=== PATIENT | female | born 1975 | race Two or more races ===

== ENCOUNTER 2017-12-25 12:31 | Observation (INO) | payer MEDICARE, MEDICAID ==
[~2017-12-25] VITALS: Ht 160 cm; Wt 66.8 kg
[~2017-12-25 12:31] MED LIST: CARV6.25 PO; FENT25DI2 TD; FURO40TA4 PO; HYDR-3682 PO; LIS20T OR; PANT40TA2 PO; PROM25TA5 PO; ROPI0.5T PO; SERT-138 PO; SEVE800T8 PO; SIMV-8 PO; SIMV10TA73 PO; TRAM50TA2 PO
[2017-12-25 16:03] LABS: Basophils # (auto) 0.1 uL; Basophils % (auto) 1.1 % (0.0-2.0); Eosinophils # (auto) 0.2 uL; Eosinophils % (auto) 3.6 % (0.0-7.0); Hematocrit 43.1 % (36.0-46.0); Hemoglobin 14.3 g/dL (12.2-16.2); Lymphocytes # (auto) 0.7 uL; Lymphocytes % (auto) 15.8 % (10.0-50.0); Mean Corpuscular Hemoglobin 31.5 pg (28.0-32.0); Mean Corpuscular Hgb Conc. 33.2 g/dL (32.0-36.0); Mean Corpuscular Volume 95.1 fL (80.0-100.0); Monocytes # (auto) 0.4 uL; Neutrophils # (auto) 3.3 uL; Neutrophils % (auto) 71.5 % (37.0-80.0); Platelet Count (auto) 173 10^3/uL (140-450); Red Blood Cells 4.53 10^6/uL (4.0-5.20); Red Cell Distribution Width 16.3 % (11.8-14.3); White Blood Cell 4.6 10^3/uL (4.4-10.8)
[2017-12-25 16:27] LABS: Alanine Aminotransferase 19 U/L (13-56); Albumin 3.5 g/dL (3.4-5.0); Alkaline Phosphatase 81 U/L (45-117); Anion Gap 9 (5-15); Aspartate Aminotransferase 16 U/L (15-37); Blood Urea Nitrogen 20 mg/dL (7-18); Calcium 7.2 mg/dL (8.5-10.1); Carbon Dioxide 30 mmol/L (21-32); Chloride 92 mmol/L (98-107); GFR African American 9 mL/min; GFR Non-African American 7 mL/min; Glucose 120 mg/dL (74-106); Magnesium 2.6 mg/dL (1.6-2.6); Potassium 4.4 mmol/L (3.5-5.1); Sodium 131 mmol/L (136-145); Total Protein 6.8 g/dL (6.4-8.2)
[2017-12-25 16:29] LABS: INR 1.19 (0.9-1.15)
[2017-12-25] MEDS ORDERED: HYDROcodone-ACET 10/325MG TAB PO ONE (16:30)
[2017-12-25 18:30] VITALS: BP 137/97
== END 2017-12-25 19:08 | disposition home or self-care (01) | DRG 948 ==
LOC: ER 12:37 → OVERFLOW 15:23 → ER 19:07
PROVIDERS: ADMIT Family Medicine; ATTEND Family Medicine
DX: R53.1 Weakness (principal); Q61.3 Polycystic kidney, unspecified; E16.2 Hypoglycemia, unspecified; Z99.2 Dependence on renal dialysis; Z90.49 Acquired absence of other specified parts of digestive tract; Z90.710 Acquired absence of both cervix and uterus; Z90.5 Acquired absence of kidney
CPT/HCPCS: 36415; 71045; 80053; 83735; 84484; 85025; 85610; 85730; 93005; 99285; G0378

== ENCOUNTER 2018-01-24 12:16 | Inpatient (IN) | payer MEDICARE, MEDICAID ==
[~2018-01-24] VITALS: Ht 160 cm; Wt 67.8 kg
[2018-01-24 13:30] LABS: Basophils # (auto) 0 uL; Basophils % (auto) 0.4 % (0.0-2.0); Eosinophils # (auto) 0.3 uL; Eosinophils % (auto) 5.3 % (0.0-7.0); Hematocrit 40.6 % (36.0-46.0); Hemoglobin 13.2 g/dL (12.2-16.2); Lymphocytes # (auto) 0.5 uL; Mean Corpuscular Hemoglobin 30.2 pg (28.0-32.0); Mean Corpuscular Hgb Conc. 32.6 g/dL (32.0-36.0); Mean Corpuscular Volume 92.8 fL (80.0-100.0); Monocytes # (auto) 0.5 uL; Monocytes % (auto) 8.4 % (0.0-12.0); Neutrophils # (auto) 4.6 uL; Neutrophils % (auto) 76.9 % (37.0-80.0); Platelet Count (auto) 149 10^3/uL (140-450); Red Blood Cells 4.38 10^6/uL (4.0-5.20); Red Cell Distribution Width 17.3 % (11.8-14.3)
[2018-01-24 13:56] LABS: Alanine Aminotransferase 16 U/L (13-56); Albumin 3.3 g/dL (3.4-5.0); Anion Gap 11 (5-15); Aspartate Aminotransferase 19 U/L (15-37); BUN/Creatinine Ratio 3.4; Blood Urea Nitrogen 14 mg/dL (7-18); Calcium 7.9 mg/dL (8.5-10.1); Carbon Dioxide 29 mmol/L (21-32); Chloride 91 mmol/L (98-107); GFR African American 15 mL/min; GFR Non-African American 12 mL/min; Glucose 96 mg/dL (74-106); Magnesium 2.3 mg/dL (1.6-2.6); Sodium 131 mmol/L (136-145)
[2018-01-24 14:00] LABS: Alkaline Phosphatase 71 U/L (45-117); Total Protein 6.5 g/dL (6.4-8.2)
[2018-01-24] MEDS ORDERED: DOCUSATE SOD 100 MG CAP PO PRN (19:00)
[2018-01-24] MEDS ORDERED: hydrOXYzine 25 MG TAB or CAP PO PRN (19:00)
[2018-01-24] MEDS ORDERED: ONDANSETRON HCL 4 MG/2 ML VIAL IV PRN (19:00)
[2018-01-24] MEDS ORDERED: MORPHINE SULFATE 4 MG/ML SYR/VIAL IV PRN (19:00)
[2018-01-24] MEDS ORDERED: HYDROcodone-ACET 10/325MG TAB PO PRN (19:00)
[2018-01-24] MEDS ORDERED: TEMAZEPAM 15 MG CAP PO PRN (19:00)
[2018-01-24] MEDS ORDERED: NITROGLYCERIN 0.4 MG SL TAB SL PRN (19:00)
[2018-01-24] MEDS ORDERED: DEXTROSE (50%) 50ML SYRG IV PRN (19:00)
[2018-01-24] MEDS ORDERED: ACETAMINOPHEN 325 MG TAB PO PRN (19:00)
[2018-01-24] MEDS ORDERED: cefTRIAXone 1GM/10ml IVPUSH 10 ML IV ONE (19:00)
[2018-01-24] MEDS ORDERED: cloNIDine HCL 0.1 MG TAB PO PRN (20:15)
[2018-01-24 21:04] VITALS: BP 142/86
[2018-01-24] MEDS: MORPHINE SULFATE 4 MG/ML SYR/VIAL IV PRN (21:28)
[2018-01-24 21:59] VITALS: BP 142/86
[2018-01-24] MEDS: ACCU-CHEK COMFORT CURVE STRIP VI SCH (22:00)
[2018-01-24] MEDS ORDERED: LISINOPRIL 20 MG TAB PO SCH (22:00)
[2018-01-24] MEDS ORDERED: ATORVASTATIN 20 MG TAB PO SCH (22:00)
[2018-01-24] MEDS ORDERED: SERTRALINE HCL 50 MG TAB PO SCH (22:00)
[2018-01-24] MEDS: InsuLIN REG 1unit/0.01ml Soln (100units/ml) SC SCH (22:00)
[2018-01-24] MEDS: CARVEDILOL 3.125 MG TAB PO SCH (22:38)
[2018-01-24] MEDS: FAMOTIDINE 20 MG TAB PO SCH (22:39)
[2018-01-24] MEDS: SODIUM CHLOR 0.9% PF (SALINE LOCK) 10ML VIAL/SYR IV SCH (22:40)
[2018-01-25] MEDS: MORPHINE SULFATE 4 MG/ML SYR/VIAL IV PRN ×4 (01:45→17:34)
[2018-01-25 05:57] VITALS: BP_SYST 144
[2018-01-25 05:58] VITALS: BP 144/87
[2018-01-25] MEDS: InsuLIN REG 1unit/0.01ml Soln (100units/ml) SC SCH ×3 (06:23→17:00)
[2018-01-25] MEDS: SODIUM CHLOR 0.9% PF (SALINE LOCK) 10ML VIAL/SYR IV SCH ×2 (06:23→13:48)
[2018-01-25] MEDS: ACCU-CHEK COMFORT CURVE STRIP VI SCH ×3 (06:23→17:34)
[2018-01-25 06:57] LABS: Basophils # (auto) 0 uL; Basophils % (auto) 0.4 % (0.0-2.0); Eosinophils # (auto) 0.3 uL; Eosinophils % (auto) 6.1 % (0.0-7.0); Hematocrit 38.2 % (36.0-46.0); Hemoglobin 12.6 g/dL (12.2-16.2); Lymphocytes # (auto) 0.7 uL; Lymphocytes % (auto) 12.5 % (10.0-50.0); Mean Corpuscular Hemoglobin 30.5 pg (28.0-32.0); Mean Corpuscular Hgb Conc. 32.9 g/dL (32.0-36.0); Mean Corpuscular Volume 92.6 fL (80.0-100.0); Monocytes # (auto) 0.4 uL; Neutrophils # (auto) 3.9 uL; Nucleated Red Blood Cells % 0.1 %; Platelet Count (auto) 136 10^3/uL (140-450); Red Blood Cells 4.13 10^6/uL (4.0-5.20); White Blood Cell 5.2 10^3/uL (4.4-10.8)
[2018-01-25 07:21] LABS: Albumin 3.1 g/dL (3.4-5.0); BUN/Creatinine Ratio 3.8; Bilirubin, Total 0.8 mg/dL (0.2-1.0); Calcium 7.7 mg/dL (8.5-10.1); Potassium 4.5 mmol/L (3.5-5.1); Total Protein 5.9 g/dL (6.4-8.2)
[2018-01-25] MEDS ORDERED: cefTRIAXone 1GM/10ml IVPUSH 10 ML IV SCH (09:00)
[2018-01-25 09:11] VITALS: BP 134/87
[2018-01-25] MEDS: BOOST PLUS 8 ounce PO SCH ×3 (09:19→17:34)
[2018-01-25] MEDS: CARVEDILOL 3.125 MG TAB PO SCH (09:19)
[2018-01-25] MEDS: FAMOTIDINE 20 MG TAB PO SCH (09:20)
[2018-01-25] MEDS ORDERED: MULTIPLE VITAMIN TAB PO SCH (10:00)
[2018-01-25] MEDS ORDERED: MORPHINE SULFATE INJECTION 1 ML ONE (11:23)
[2018-01-25] MEDS ORDERED: PROMETHAZINE HCL 25 MG/ML 1ML ONE (11:23)
[2018-01-25] MEDS ORDERED: PROMETHAZINE HCL 25 MG/ML 1ML IV PRN (11:30)
[2018-01-25 13:36] VITALS: BP 136/84
[2018-01-25] MEDS ORDERED: SODIUM CHL 0.9% 1000 ML BAG XX ONE (15:00)
[2018-01-25] MEDS ORDERED: diphenhdrAMINE HCL 50 MG/1 ML VL IV ONE (15:15)
[2018-01-25] MEDS ORDERED: diphenhdrAMINE HCL 50 MG/1 ML VL ONE (15:16)
[2018-01-25 15:38] VITALS: BP 134/87
[2018-01-25 19:14] VITALS: BP 150/88
== END 2018-01-25 19:43 | disposition home or self-care (01) | DRG 682 ==
LOC: ER 12:16 → EDBD 12:16 → TELE 12:17 → TELE-EAST 21:03
PROVIDERS: ADMIT Internal Medicine; ATTEND Internal Medicine
PROC: 5A1D70Z Performance of Urinary Filtration, Intermittent, Less than 6 Hours Per Day (ICD-10-PCS; principal; 2018-01-24)
DX: I13.11 Hypertensive heart and chronic kidney disease without heart failure, with stage 5 chronic kidney disease, or end stage renal disease (principal); N18.6 End stage renal disease; E44.0 Moderate protein-calorie malnutrition; E83.51 Hypocalcemia; Q61.3 Polycystic kidney, unspecified; E87.1 Hypo-osmolality and hyponatremia; E16.2 Hypoglycemia, unspecified; E78.5 Hyperlipidemia, unspecified; Z99.2 Dependence on renal dialysis; Z90.49 Acquired absence of other specified parts of digestive tract; Z90.5 Acquired absence of kidney; Z90.710 Acquired absence of both cervix and uterus; Z88.2 Allergy status to sulfonamides; Z79.899 Other long term (current) drug therapy; Z68.26 Body mass index [BMI] 26.0-26.9, adult
CPT/HCPCS: 36415; 80053; 82962; 83605; 83735; 84484; 85025; 87040; 90935; 93005; 94761; 96374; J2270

== ENCOUNTER 2018-03-01 13:12 | Observation (INO) | payer MEDICARE, MEDICAID ==
[~2018-03-01] VITALS: Ht 160 cm; Wt 61.7 kg
[~2018-03-01 13:12] MED LIST changes: -PROM25TA5 PO; -ROPI0.5T PO; -SIMV10TA73 PO; -TRAM50TA2 PO
[2018-03-01 14:07] LABS: Basophils # (auto) 0 uL; Basophils % (auto) 0.9 % (0.0-2.0); Eosinophils # (auto) 0.1 uL; Eosinophils % (auto) 1.1 % (0.0-7.0); Hematocrit 36.8 % (36.0-46.0); Hemoglobin 11.9 g/dL (12.2-16.2); Lymphocytes # (auto) 0.3 uL; Mean Corpuscular Hemoglobin 29.9 pg (28.0-32.0); Mean Corpuscular Hgb Conc. 32.3 g/dL (32.0-36.0); Mean Corpuscular Volume 92.7 fL (80.0-100.0); Monocytes # (auto) 0.4 uL; Monocytes % (auto) 8.6 % (0.0-12.0); Neutrophils # (auto) 4.4 uL; Neutrophils % (auto) 83.4 % (37.0-80.0); Platelet Count (auto) 180 10^3/uL (140-450); Red Blood Cells 3.97 10^6/uL (4.0-5.20); Red Cell Distribution Width 17.5 % (11.8-14.3); White Blood Cell 5.3 10^3/uL (4.4-10.8)
[2018-03-01 14:27] LABS: Albumin 3.4 g/dL (3.4-5.0); BUN/Creatinine Ratio 1.4; Bilirubin, Total 0.9 mg/dL (0.2-1.0); Calcium 8.6 mg/dL (8.5-10.1); Potassium 3.3 mmol/L (3.5-5.1); Total Protein 6.5 g/dL (6.4-8.2)
[2018-03-01] MEDS ORDERED: SODIUM CHLORIDE 0.9% 1,000 ML IV ONE (17:44)
[2018-03-01] MEDS ORDERED: KETOROLAC TROMETH 30 MG/ML 1ML VIAL IV ONE (17:45)
[2018-03-01] MEDS ORDERED: ONDANSETRON HCL 4 MG/2 ML VIAL IV ONE (17:45)
[2018-03-01] MEDS ORDERED: POTASSIUM CHL 10% (20 MEQ/15ML) 15ml ORAL SOLN PO ONE (20:00)
[2018-03-01] MEDS ORDERED: POTASSIUM CHL 20 Meq TABLET PO ONE (20:32)
[2018-03-01 20:40] VITALS: BP 128/80
== END 2018-03-01 20:17 | disposition home or self-care (01) | DRG 391 ==
LOC: ER 13:12 → OVERFLOW 13:13 → ER 20:17
PROVIDERS: ADMIT Family Medicine; ATTEND Family Medicine
DX: R11.2 Nausea with vomiting, unspecified (principal); N18.6 End stage renal disease; I12.0 Hypertensive chronic kidney disease with stage 5 chronic kidney disease or end stage renal disease; Q61.3 Polycystic kidney, unspecified; D63.1 Anemia in chronic kidney disease; E87.6 Hypokalemia; Z99.2 Dependence on renal dialysis; Z90.710 Acquired absence of both cervix and uterus; Z90.5 Acquired absence of kidney; Z82.49 Family history of ischemic heart disease and other diseases of the circulatory system; Z88.2 Allergy status to sulfonamides; Z90.49 Acquired absence of other specified parts of digestive tract; Z79.899 Other long term (current) drug therapy
CPT/HCPCS: 36415; 71045; 80053; 85025; 96360; 96361; 99285; G0378; J1885; J2405

== ENCOUNTER 2023-11-05 21:00 | Inpatient (IN) | payer MEDICARE, MEDICAID ==
[~2023-11-05] VITALS: Ht 157.5 cm; Wt 65.4 kg
[~2023-11-05 21:00] MED LIST changes: -SERT-138 PO; +SERT50TA PO; -SIMV-8 PO; +SIMV20TA20 PO
[2023-11-05] MEDS: ONDANSETRON HCL 4 MG/2 ML VIAL IM ONE (21:54)
[2023-11-05] MEDS: HYDROmorphone HCL 2 MG/ML VL/or syr IM ONE (22:01)
[2023-11-05 22:20] LABS: Basophils # (auto) 0.1 10 ^3/uL (0-0.2); Basophils % (auto) 1.6 % (0.0-2.0); Eosinophils # (auto) 0.2 10 ^3/uL (0-0.8); Eosinophils % (auto) 5.6 % (0.0-7.0); Hematocrit 39.5 % (36.0-46.0); Hemoglobin 12.7 g/dL (12.2-16.2); Lymphocytes # (auto) 0.9 10 ^3/uL (0.4-5.4); Mean Corpuscular Hemoglobin 29.5 pg (28.0-32.0); Mean Corpuscular Hgb Conc. 32.2 g/dL (32.0-36.0); Mean Corpuscular Volume 91.6 fL (80.0-100.0); Monocytes # (auto) 0.3 10 ^3/uL (0-1.3); Monocytes % (auto) 8.3 % (0.0-12.0); Neutrophils # (auto) 2.6 10 ^3/uL (1.6-8.6); Neutrophils % (auto) 63.5 % (37.0-80.0); Nucleated Red Blood Cells % 0.1 %; Red Blood Cells 4.31 10^6/uL (4.0-5.20); Red Cell Distribution Width 15.4 % (11.8-14.3); White Blood Cell 4.1 10^3/uL (4.4-10.8)
[2023-11-05 22:41] LABS: Alanine Aminotransferase < 9 U/L (7-40); Albumin 3.8 g/dL (3.2-4.8); Alkaline Phosphatase 86 U/L (46-116); Anion Gap 7 (5-15); Aspartate Aminotransferase 18 U/L (13-40); BUN/Creatinine Ratio 2.6 (10.0-20.0); Blood Urea Nitrogen 10 mg/dL (9-23); Calcium 8.5 mg/dL (8.7-10.4); Carbon Dioxide 31 mmol/L (20-30); Chloride 96 mmol/L (98-107); Glucose 103 mg/dL (74-106); Lipase 34 U/L (12-53); Potassium 4.2 mmol/L (3.5-5.1); Sodium 134 mmol/L (136-145); Total Protein 6.6 g/dL (5.7-8.2)
[2023-11-06 00:35] LABS: COVID19 ANTIGEN SOFIA FIA NEGATIVE (NEGATIVE); Rapid Influenza A Negative (Negative); Rapid Influenza B Negative (Negative)
[2023-11-06] MEDS ORDERED: DOCUSATE SOD 100 MG CAP PO PRN (02:15)
[2023-11-06] MEDS: CARVEDILOL 12.5 MG TAB PO ONE (03:06)
[2023-11-06] MEDS ORDERED: NITROGLYCERIN 0.4 MG SL TAB SL PRN (03:45)
[2023-11-06] MEDS: SODIUM CHLOR 0.9% PF (SALINE LOCK) 10ML VIAL/SYR IV SCH (04:58)
[2023-11-06] MEDS: HYDROcodone-ACET 5/325MG TAB PO PRN (05:02)
[2023-11-06 07:33] LABS: Basophils # (auto) 0.1 10 ^3/uL (0-0.2); Basophils % (auto) 1.1 % (0.0-2.0); Eosinophils # (auto) 0.3 10 ^3/uL (0-0.8); Eosinophils % (auto) 6.7 % (0.0-7.0); Hematocrit 39.3 % (36.0-46.0); Hemoglobin 12.8 g/dL (12.2-16.2); Lymphocytes # (auto) 1.5 10 ^3/uL (0.4-5.4); Mean Corpuscular Hemoglobin 29.6 pg (28.0-32.0); Mean Corpuscular Hgb Conc. 32.6 g/dL (32.0-36.0); Mean Corpuscular Volume 90.9 fL (80.0-100.0); Monocytes # (auto) 0.4 10 ^3/uL (0-1.3); Monocytes % (auto) 7.8 % (0.0-12.0); Neutrophils # (auto) 2.4 10 ^3/uL (1.6-8.6); Neutrophils % (auto) 51.4 % (37.0-80.0); Red Blood Cells 4.32 10^6/uL (4.0-5.20); White Blood Cell 4.7 10^3/uL (4.4-10.8)
[2023-11-06 07:57] VITALS: PULSE 81
[2023-11-06] MEDS: SEVELAMER 800 MG TAB PO SCH (08:00)
[2023-11-06 08:15] LABS: Albumin 3.9 g/dL (3.2-4.8); Alkaline Phosphatase 90 U/L (46-116); Anion Gap 6 (5-15); Aspartate Aminotransferase 14 U/L (13-40); BUN/Creatinine Ratio 2.7 (10.0-20.0); Blood Urea Nitrogen 12 mg/dL (9-23); Calcium 8.8 mg/dL (8.7-10.4); Carbon Dioxide 33 mmol/L (20-30); Chloride 96 mmol/L (98-107); Glucose 96 mg/dL (74-106); Potassium 3.9 mmol/L (3.5-5.1); Sodium 135 mmol/L (136-145)
[2023-11-06 08:16] LABS: Bilirubin, Total 0.9 mg/dL (0.2-1.0); Total Protein 6.9 g/dL (5.7-8.2)
[2023-11-06 08:21] LABS: Alanine Aminotransferase < 9 U/L (7-40)
[2023-11-06] MEDS ORDERED: FUROSEMIDE 40 MG/4 ML VIAL IV SCH (10:00)
[2023-11-06] MEDS: FAMOTIDINE (10MG/ML) 2ML VL IV SCH (10:28)
[2023-11-06] MEDS: ASPirin 81 mg TAB PO SCH (10:28)
[2023-11-06] MEDS: B-COMPLEX W/ C & FOLIC ACID(NEPHROVITE TAB) PO SCH (10:29)
[2023-11-06] MEDS ORDERED: FENTANYL 50 MCG TD SCH (12:00)
[2023-11-06] MEDS: ONDANSETRON HCL 4 MG/2 ML VIAL IV PRN (12:14)
[2023-11-06] MEDS: MORPHINE SULFATE INJ 2 MG/ml SYRG IV PRN (12:16)
[2023-11-06 12:20] LABS: Lipase 35 U/L (12-53)
[2023-11-06 12:21] LABS: Amylase 44 U/L (30-118)
[2023-11-06] MEDS ORDERED: fentaNYL 50MCG/HR 50 MCG/HR PAT TD SCH (12:45)
[2023-11-06] MEDS: metroNIDAZOLE 500MG/100ML 100 ML IV SCH (12:57)
[2023-11-06] MEDS: ATORVASTATIN 20 MG TAB PO SCH (22:36)
[2023-11-06] MEDS: hydrALAZINE HCL 20 MG/ML VL IV PRN (22:41)
[2023-11-06 23:47] VITALS: BP 176/90; PULSE 87; RESP 18; TEMP 98; O2SAT 98
[2023-11-07] VITALS (8 sets, daily range): BP systolic 138–177; BP diastolic 69–100; PULSE 20–93; RESP 18–24; TEMP 97.2–97.8; O2SAT 93–98
[2023-11-07] MEDS: MORPHINE SULFATE INJ 2 MG/ml SYRG IV PRN (01:21)
[2023-11-07 06:37] LABS: Basophils # (auto) 0 10 ^3/uL (0-0.2); Basophils % (auto) 0.9 % (0.0-2.0); Eosinophils # (auto) 0.3 10 ^3/uL (0-0.8); Eosinophils % (auto) 7.3 % (0.0-7.0); Hematocrit 35.8 % (36.0-46.0); Lymphocytes # (auto) 1.2 10 ^3/uL (0.4-5.4); Lymphocytes % (auto) 26.1 % (10.0-50.0); Mean Corpuscular Hgb Conc. 33.4 g/dL (32.0-36.0); Monocytes # (auto) 0.4 10 ^3/uL (0-1.3); Monocytes % (auto) 7.9 % (0.0-12.0); Neutrophils # (auto) 2.7 10 ^3/uL (1.6-8.6); Neutrophils % (auto) 57.8 % (37.0-80.0); Nucleated Red Blood Cells % 0.1 %; Red Blood Cells 3.98 10^6/uL (4.0-5.20); Red Cell Distribution Width 14.9 % (11.8-14.3); White Blood Cell 4.7 10^3/uL (4.4-10.8)
[2023-11-07 06:53] LABS: Albumin 3.7 g/dL (3.2-4.8); Alkaline Phosphatase 74 U/L (46-116); Anion Gap 10 (5-15); Aspartate Aminotransferase 17 U/L (13-40); BUN/Creatinine Ratio 2.7 (10.0-20.0); Bilirubin, Total 0.8 mg/dL (0.2-1.0); Blood Urea Nitrogen 15 mg/dL (9-23); Calcium 8.9 mg/dL (8.5-10.1); Carbon Dioxide 30 mmol/L (20-30); Chloride 95 mmol/L (98-107); Glucose 97 mg/dL (74-106); Potassium 3.6 mmol/L (3.5-5.1); Sodium 135 mmol/L (136-145); Total Protein 6.2 g/dL (5.7-8.2)
[2023-11-07 06:57] LABS: Alanine Aminotransferase < 9 U/L (7-40)
[2023-11-07] MEDS: ACETAMINOPHEN 325 MG TAB PO PRN (10:48)
[2023-11-07] MEDS: LORazepam 0.5 MG TAB PO PRN (12:59)
[2023-11-07] MEDS: CARISOPRODOL 350 MG TAB PO ONE (17:02)
[2023-11-08] VITALS (7 sets, daily range): BP systolic 148–173; BP diastolic 81–94; PULSE 69–76; RESP 16–20; TEMP 97.7–98; O2SAT 96–99
[2023-11-08] MEDS ORDERED: SODIUM CHL 0.9% 1000 ML BAG XX ONE (07:00)
[2023-11-08] MEDS: METOCLOPRAMIDE HCL 10 MG TAB PO SCH (14:09)
[2023-11-08] MEDS: MORPHINE SULFATE INJ 2 MG/ml SYRG IV PRN (16:21)
[2023-11-08] MEDS: diphenhdrAMINE HCL 50 MG/1 ML VL IV ONE (18:12)
[2023-11-09] VITALS (7 sets, daily range): BP systolic 107–178; BP diastolic 64–101; PULSE 66–93; RESP 17–19; TEMP 97.8–98.6; O2SAT 90–98
[2023-11-09] MEDS ORDERED: FENT50DI2 TD (10:41)
[2023-11-09] MEDS ORDERED: TRAM50TA2 PO (10:48)
[2023-11-09] MEDS ORDERED: FAMO-12 PO (10:48)
[2023-11-09] MEDS ORDERED: CALC667C PO (10:48)
[2023-11-09] MEDS ORDERED: HYDR-4798 PO (10:48)
[2023-11-09] MEDS ORDERED: ONDA-155 SL (10:48)
[2023-11-09] MEDS ORDERED: SUCR5CHW PO (10:50)
[2023-11-09] MEDS: VANCOMYCIN HCL 250 MG CAP PO SCH (17:36)
[2023-11-09] MEDS: BACLOFEN 10 MG TAB PO ONE (22:23)
[2023-11-10 05:00] VITALS: BP 173/95; PULSE 92; RESP 16; TEMP 97.8; O2SAT 97
[2023-11-10 06:37] LABS: Chloride 99 mmol/L (98-107); Potassium 3.9 mmol/L (3.5-5.1); Sodium 138 mmol/L (136-145)
[2023-11-10 06:38] LABS: Anion Gap 10 (5-15); Calcium 9.2 mg/dL (8.5-10.1); Carbon Dioxide 29 mmol/L (20-30)
[2023-11-10 06:43] LABS: BUN/Creatinine Ratio 1.9 (10.0-20.0); Blood Urea Nitrogen 11 mg/dL (9-23); Glucose 86 mg/dL (74-106)
[2023-11-10] MEDS ORDERED: SODIUM CHL 0.9% 1000 ML BAG XX ONE (07:00)
[2023-11-10 08:32] VITALS: BP 172/99; PULSE 89; RESP 18; TEMP 97.8; O2SAT 97
[2023-11-10 09:04] LABS: Hepatitis B Core Total AB Negative (Negative)
[2023-11-10 09:35] LABS: INR 1.32 (0.9-1.15); Partial Thromboplastin Time 30.2 SEC (24.5-34.5); Prothrombin Time 13.6 sec (9.3-11.8)
[2023-11-10 11:15] LABS: Hepatitis A Total Antibody Positive (Negative); Hepatitis B Surface Antibody Positive (Negative); Hepatitis B Surface Antigen Negative (Negative)
[2023-11-10 11:16] LABS: Hepatitis C Antibody Negative (Negative)
[2023-11-10 12:45] VITALS: BP 179/99; PULSE 96; RESP 18; TEMP 98; O2SAT 97
[2023-11-10] MEDS: diphenhdrAMINE HCL 50 MG/1 ML VL IV ONE (15:24)
[2023-11-10 17:00] VITALS: BP 190/105; PULSE 103; RESP 18; TEMP 97.6; O2SAT 97
[2023-11-10] MEDS: CARISOPRODOL 350 MG TAB PO PRN (17:28)
[2023-11-10 22:00] VITALS: BP 167/100; PULSE 90; RESP 16; TEMP 98.3; O2SAT 96
[2023-11-11] VITALS (7 sets, daily range): BP systolic 150–176; BP diastolic 84–104; PULSE 91–98; RESP 17; TEMP 97.3–98.2; O2SAT 94–97
[2023-11-11 04:59] LABS: Basophils # (auto) 0.1 10 ^3/uL (0-0.2); Basophils % (auto) 1.4 % (0.0-2.0); Eosinophils # (auto) 0.3 10 ^3/uL (0-0.8); Eosinophils % (auto) 7.2 % (0.0-7.0); Hematocrit 35.2 % (36.0-46.0); Hemoglobin 11.6 g/dL (12.2-16.2); Lymphocytes # (auto) 0.7 10 ^3/uL (0.4-5.4); Lymphocytes % (auto) 17.3 % (10.0-50.0); Mean Corpuscular Hemoglobin 29.8 pg (28.0-32.0); Mean Corpuscular Hgb Conc. 32.9 g/dL (32.0-36.0); Mean Corpuscular Volume 90.6 fL (80.0-100.0); Monocytes # (auto) 0.3 10 ^3/uL (0-1.3); Monocytes % (auto) 7.9 % (0.0-12.0); Neutrophils # (auto) 2.7 10 ^3/uL (1.6-8.6); Neutrophils % (auto) 66.2 % (37.0-80.0); Nucleated Red Blood Cells % 0.1 %; Red Blood Cells 3.89 10^6/uL (4.0-5.20); Red Cell Distribution Width 15.6 % (11.8-14.3); White Blood Cell 4.1 10^3/uL (4.4-10.8)
[2023-11-11 05:11] LABS: Chloride 101 mmol/L (98-107); Potassium 4.5 mmol/L (3.5-5.1); Sodium 137 mmol/L (136-145)
[2023-11-11 05:12] LABS: Anion Gap 7 (5-15); Carbon Dioxide 29 mmol/L (20-30)
[2023-11-11 05:13] LABS: Calcium 8.7 mg/dL (8.7-10.4)
[2023-11-11 05:17] LABS: BUN/Creatinine Ratio 1.9 (10.0-20.0); Blood Urea Nitrogen 9 mg/dL (9-23); Glucose 83 mg/dL (74-106)
[2023-11-11 07:25] LABS: Platelet Estimate Decreased; RBC Morphology Normal
[2023-11-11] MEDS ORDERED: SACC250C PO (09:38)
[2023-11-11] MEDS ORDERED: CARI350T28 PO (09:38)
[2023-11-11] MEDS ORDERED: VANC125PO PO (09:38)
[2023-11-12] MEDS ORDERED: SODIUM CHL 0.9% 1000 ML BAG XX ONE (07:00)
== END 2023-11-11 18:45 | disposition home or self-care (01) | DRG 371 ==
LOC: ER 21:00 → TELE 11-06 03:36 → TELE-WESTW 11-06 23:11 → WEST WING 11-09 01:42 → CENTRAL 11-09 15:42
PROVIDERS: ADMIT Nurse Practitioner Family; ATTEND Nurse Practitioner Acute Care
PROC: 5A1D70Z Performance of Urinary Filtration, Intermittent, Less than 6 Hours Per Day (ICD-10-PCS; principal; 2023-11-08)
PROC: 5A1D70Z Performance of Urinary Filtration, Intermittent, Less than 6 Hours Per Day (ICD-10-PCS; 2023-11-10)
DX: A04.72 Enterocolitis due to Clostridium difficile, not specified as recurrent (principal); I50.23 Acute on chronic systolic (congestive) heart failure; N18.6 End stage renal disease; I13.2 Hypertensive heart and chronic kidney disease with heart failure and with stage 5 chronic kidney disease, or end stage renal disease; Q61.2 Polycystic kidney, adult type; Q44.6 Cystic disease of liver; Z99.2 Dependence on renal dialysis; Z20.822 Contact with and (suspected) exposure to COVID-19; D63.1 Anemia in chronic kidney disease; D69.6 Thrombocytopenia, unspecified; I34.0 Nonrheumatic mitral (valve) insufficiency; I50.82 Biventricular heart failure; M79.604 Pain in right leg; M79.605 Pain in left leg; K86.9 Disease of pancreas, unspecified; K76.89 Other specified diseases of liver; G89.4 Chronic pain syndrome; Z90.710 Acquired absence of both cervix and uterus; Z90.49 Acquired absence of other specified parts of digestive tract; Z90.5 Acquired absence of kidney
CPT/HCPCS: 36415; 74176; 76705; 80048; 80053; 82105; 82150; 82378; 82962; 83605; 83690; 83880; 84443; 84484; 85025; 85610; 85730; 86301; 86704; 86706; 86708; 86803; 87340; 87426; 87493; 87804; 90935; 93306; G0378; J1642; J2405; J3490

== ENCOUNTER → 2024-06-13 | Outpatient (CLI) | payer MEDICARE, MEDICAID ==
[~2024-06-13] MED LIST changes: +CALC667C PO; +CARI-579 PO; -CARV6.25 PO; +FAMO-12 PO; -FENT25DI2 TD; +FENT50DI2 TD; -FURO40TA4 PO; -HYDR-3682 PO; +HYDR-4798 PO; -LIS20T OR; +ONDA-155 SL; -PANT40TA2 PO; +SACC250C PO; -SERT50TA PO; -SEVE800T8 PO; -SIMV20TA20 PO; +SUCR5CHW PO; +TRAM50TA2 PO; +VANC125PO PO
== END | disposition home or self-care (01) ==
LOC: Rad HDHVI 13:01
PROVIDERS: ATTEND Internal Medicine Cardiovascular Disease
DX: Z01.818 Encounter for other preprocedural examination (principal)
CPT/HCPCS: 93306

== ENCOUNTER → 2024-06-27 | Outpatient (CLI) | payer MEDICARE, MEDICAID ==
[~2024-06-27] VITALS: Ht 160 cm; Wt 54.0 kg
[~2024-06-27] MED LIST changes: +ADENOSINE 45 MG in GIVE UN-DILUTED 0 ML IV ONE; +ADENOSINE 90 MG/30 ML INJ IV ONE
== END | disposition home or self-care (01) ==
LOC: Rad HDHVI 08:03
PROVIDERS: ATTEND Internal Medicine Cardiovascular Disease
DX: Z01.810 Encounter for preprocedural cardiovascular examination (principal); I13.2 Hypertensive heart and chronic kidney disease with heart failure and with stage 5 chronic kidney disease, or end stage renal disease; I50.23 Acute on chronic systolic (congestive) heart failure; N18.6 End stage renal disease; Z99.2 Dependence on renal dialysis
CPT/HCPCS: 78452; 93005; 96374; 96375; A9500; J0153

== ENCOUNTER → 2024-08-29 | Outpatient (CLI) | payer MEDICARE, MEDICAID ==
[~2024-08-29] MED LIST changes: -ADENOSINE 45 MG in GIVE UN-DILUTED 0 ML IV ONE; -ADENOSINE 90 MG/30 ML INJ IV ONE; +CARV6.2517 PO; +GABA-1308 PO; +HYDR-3682 PO; +SACU1TAB PO
[2024-08-29 12:14] VITALS: BP 148/78; PULSE 104; RESP 18; O2SAT 98
[2024-08-29 12:26] VITALS: BP 145/83; PULSE 108; RESP 17; O2SAT 96
--- NOTE | 2024-08-29 13:29 | DVH ---
XY CHEST TWO VIEWS ROUTINE CLINICAL HISTORY: PRE OP COMPARISON: None TECHNIQUE: Frontal and lateral view of the chest was obtained FINDINGS: Lines and Tubes: Vascular stent projecting over the left upper lung zone. Lungs: No focal consolidation. Pleura: Minimally blunted bilateral costophrenic angles. No pneumothorax. Cardiomediastinal contours:Cardiomegaly. Bones: No acute osseous abnormality. IMPRESSION: 1. Cardiomegaly. Minimally blunted bilateral costophrenic angles may represent trace bilateral effusi ons, atelectasis, or infiltrates. HS:Y
== END | disposition home or self-care (01) ==
LOC: Rad HDHVI 12:08
PROVIDERS: ATTEND Internal Medicine Cardiovascular Disease
DX: Z01.818 Encounter for other preprocedural examination (principal); I51.7 Cardiomegaly
CPT/HCPCS: 71046; 93005; G0463

== ENCOUNTER 2024-08-30 07:57 | Day surgery (SDC) | payer MEDICARE, MEDICAID ==
[2024-08-30] VITALS (7 sets, daily range): BP systolic 144–174; BP diastolic 87–103; PULSE 104–110; RESP 12–15; O2SAT 96–100
[~2024-08-30] VITALS: Ht 160 cm; Wt 58.5 kg
[~2024-08-30 07:57] MED LIST changes: -CARI-579 PO; -FAMO-12 PO; -HYDR-4798 PO; -SACC250C PO; -VANC125PO PO
[2024-08-30] MEDS ORDERED: VANCOMYCIN HCL 1000 MG VL ONE (12:23)
[2024-08-30] MEDS ORDERED: VANCOMYCIN 1GM/250ML KIT 250 ML IV ONE (12:24)
[2024-08-30] MEDS ORDERED: MIDAZOLAM HCL 2MG/2ML 2ml VIAL (1mg/ml) ONE (12:24)
[2024-08-30] MEDS ORDERED: LIDOCAINE 2%HCL (LOCAL ANESTH.) INJ 20ML MDV ONE ×2 (12:24→13:04)
[2024-08-30] MEDS ORDERED: fentaNYL CITRATE 100 MCG/2 ML VL ONE (12:24)
[2024-08-30] MEDS ORDERED: FUROSEMIDE 20 MG/2 ML VIAL ONE ×2 (13:03→13:30)
--- NOTE | 2024-08-30 14:44 | DVH ---
EXAMINATION: AP portable chest radiograph CLINICAL HISTORY: S/P PACEMAKER COMPARISON: None TECHNIQUE: Portable upright AP view of the chest. FINDINGS: Cardiomegaly without findings of congestive failure. Findings may represent cardiomyopathy or pericar dial effusion. Dual-chamber AICD pacemaker is in place. With pulse generator over the right chest. AED pad is noted over the left chest. No dominant consolidations. The costophrenic angles are clear. No sizable pleural effusions or pneumo thorax identified. The cardiomediastinal silhouette appears within normal limits given technique. IMPRESSION: 1. Cardiomegaly without findings of congestive failure. Findings are worrisome for pericardial effusi on or cardiomyopathy. 2.
--- NOTE | 2024-08-30 14:50 | DVHHP ---
ADMIT DATE: 08/30/2024 HISTORY OF PRESENT ILLNESS: The patient is a 48-year-old female who is well known to me with history of dilated cardiomyopathy, depressed left ventricular ejection fraction. Coronary angiography showed diminished left ventricular ejection fraction. Coronary anatomy is within normal limits. EF less than 30%. She has maximized medical management. Furthermore, she is also getting hemodialysis as well. She now has progressive symptoms of shortness of breath, lethargy, fatigue, and episodes of ventricular tachycardia was documented as well. Because of the above presentation, it is felt that the patient should undergo AICD implantation. Risks and benefits were explained to the patient. The patient denies any fever or chills. No melena, hematochezia. No hematemesis, hemoptysis. No history of hematuria. She has renal disease, renal failure, diabetic; therefore, she is on hemodialysis. She may still be a candidate for renal transplant and this is a preparation in the event that the patient can renal transplant. To improve left ventricular function, maximize medical management for her heart. She even may be a candidate for heart, kidney transplant. She denies any recent travel outside. There is no history of any seizure disorder, CVA. No history of any atrial fibrillation. No hypercoagulable state as well. Denies history of any GI bleeding, gastritis, liver disease. Denies any lung disease. No history of substance abuse. PHYSICAL EXAMINATION: VITAL SIGNS: Blood pressure is 158/72, pulse of 70, O2 saturation 94% on room air. HEENT: Pupils are reactive. Sclerae are anicteric. Some hard exudates noted. Some AV nicking noted as well. No papilledema, however, and sclerae are anicteric. Extraocular muscles are intact. Oral mucosa moist. JVD about 3 cm above the angle of Maxwell and carotid pulses are 2+ symmetrical, normal upstroke and contour. NECK: No cervical adenopathy. No supraclavicular adenopathy. Oral mucosa is within normal limits. PULMONARY: Diminished breath sounds at the bases, otherwise, unremarkable. CARDIOVASCULAR: Regular rate. PMI is slightly diffuse, laterally displaced. There is a 2/6 systolic murmur along the left sternal border. ABDOMEN: Obese. Unable to appreciate organomegaly. Stool guaiac is negative. EXTREMITIES: 2+ edema with 1+ pulses bilaterally. NEUROLOGICAL: The patient is intact. ASSESSMENT AND PLAN: The patient with end-stage renal disease, now with a dilated cardiomyopathy, ejection fraction less than 20%. The patient is now to undergo AICD placement. Further recommendations after the implantation. Aydin Martin MD SA/RICHY/GRAEME TID: [id number] RECEIPT: [id number]
--- NOTE | 2024-08-30 14:54 | DVHOP ---
DATE OF SURGERY: 08/30/2024 PROCEDURE TO BE PERFORMED: Dual-chamber AICD implantation. INDICATIONS: Dilated cardiomyopathy. The patient with end-stage renal disease, on hemodialysis; now with dilated cardiomyopathy, EF less than 20%. DESCRIPTION OF PROCEDURE: The patient was prepped and draped in a sterile condition. A 1% Xylocaine was used to anesthetize the right subclavicular region. Conscious sedation was appropriately given to the patient. Following adequate conscious sedation, using a Cook needle, the right subclavian vein was engaged with Seldinger technique, guidewire was then appropriately positioned. Using a #10 blade, linear incision was made using blunt dissection and electrocautery, pocket was then dissected out. Using a 9-Macedonian sheath, a right ventricular shock lead was then appropriately positioned. Threshold parameters obtained. Lead was secured to the chest wall using 0 Ethibond. Then, using a 7-Macedonian peel-away sheath, right atrial active fixation lead then appropriately positioned. Threshold parameters obtained. Lead was secured to the chest wall using 0 Ethibond. The generator was implanted. Pocket was irrigated using vancomycin and saline solution. Pocket was closed using 3-0 Monoderm subcutaneous sutures, followed by 3-0 Monoderm sutures. There were no complications. The patient tolerated the procedure well. RESULTS: The patient had Biotronik MRI compatible dual-chamber permanent pacemaker Rivacor 7 DR-T, model #255227, serial #[id number]. RV lead is Plexa ProMRI 65, model #666313, serial #[id number]. Atrial lead is Solia S45, model #216628, serial #[id number]. Threshold parameters atrium, P-wave amplitude 1.5 millivolts, threshold of 1.5 volts at 0.4 milliseconds pulse duration, pacing impedance of 440 ohms. Right ventricular lead shock lead, R-wave amplitude millivolts, threshold of 0.5 volts at 0.4 milliseconds pulse duration, pacing impedance of 480 ohms, shock impedance of 42 ohms. CONCLUSION: The patient had successful implantation Biotronik MRI compatible dual-chamber permanent pacemaker. Aydin Martin MD SA/PETRA/GRAEME TID: [id number] RECEIPT: [id number]
--- NOTE | 2024-08-30 16:38 | DVHDS ---
DATE OF DISCHARGE: 08/30/2024 DISCHARGE DIAGNOSES: The patient with dilated cardiomyopathy, end-stage renal disease, congestive heart failure symptoms. Now, maximized medical management. She is also getting dialysis on a regular basis. Now, the patient is to undergo dual chamber AICD implantation via the right side. Now, the patient has successful implantation of dual chamber AICD. HOSPITAL COURSE: The patient is clinically stable. The patient received intraop, into the pocket, D-Stat, which is thrombin to decrease any kind of bleeding complications since the patient is on dialysis and platelet dysfunction. There is no hematoma at this time, the patient is doing well and may be discharged home. Follow up with me in 1 week. Stable at the time of discharge. ACTIVITY: As instructed. DIET: Will be 2 gram sodium, 2 gram potassium diet. If she develops any hematoma, infection, fever or chills, and all the indications that I have described to her, she is to contact me or come to the Emergency Room. Stable at the time of discharge. Activity as instructed. Aydin Martin MD SA/PETRA/SCOUT TID: [id number] RECEIPT: [id number]
--- NOTE | 2024-09-09 10:38 | ECG ---
[facility] Test Date: 2024-08-30 Test Time: 14:29:02 Pat Name: STEPHANY BAHENA Department: Room: Gender: F [employer] Manager: ALEXIA : 1975 Requested By: KAREN HENRIQUEZ Order Number: [id number] Reading MD: Sakina Contreras Measurements Intervals [place] Rate: 105 P: 16 TN: 210 QRS: -21 QRSD: 90 T: 35 QT: 338 QTc: 446 Interpretive Statements Sinus tachycardia with 1st degree AV block Electronically Signed On 09-10-2024 15:34:53 PST by Sakina Contreras Please click the below link to view image of tracing.
== END 2024-08-30 16:10 | disposition home or self-care (01) ==
LOC: CATH 07:57
PROVIDERS: ATTEND Internal Medicine Cardiovascular Disease
DX: I13.2 Hypertensive heart and chronic kidney disease with heart failure and with stage 5 chronic kidney disease, or end stage renal disease (principal); I50.21 Acute systolic (congestive) heart failure; N18.6 End stage renal disease; I42.0 Dilated cardiomyopathy; R00.1 Bradycardia, unspecified; I47.20 Ventricular tachycardia, unspecified; Z99.2 Dependence on renal dialysis; Z88.1 Allergy status to other antibiotic agents
CPT/HCPCS: 33249; 71045; 93005; C1721; C1769; J1940; J2250; J3010; J3370; 99152; 99153